=== PATIENT | female | born 1990 | race Caucasian/White ===

== ENCOUNTER 2019-08-23 14:45 | Emergency (ER) | payer SELFPAY ==
[2019-08-23 14:57] VITALS: BP 130/64
[2019-08-23] MEDS ORDERED: PENICILLIN V POTASSIUM 500 MG TABLET PO ONE (15:14)
[2019-08-23] MEDS ORDERED: OXYCODONE-ACETAMINOPHEN 5-325 MG TABLET PO ONE (15:14)
--- NOTE | 2019-08-23 15:16 | ER Document Report ---
HPI - HPI Time Seen by Provider: 08/23/19 15:14 Notes: Patient is a 28-year-old female presenting to the emergency department with complaints of body aches, cough, congestion, chills and a rash under her bilateral breasts. 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 Past Medical History - General Information source: Patient - Social History Smoking Status: Current Every Day Smoker Frequency of alcohol use: Heavy Drug Abuse: None Family History: Reviewed & Not Pertinent - Medical History Medical History: Negative Surgical Hx: Negative - Immunizations Immunizations up to date: Yes Vertical Provider Document - CONSTITUTIONAL Notes: PHYSICAL EXAMINATION: GENERAL: Well-appearing, well-nourished and in no acute distress. HEAD: Atraumatic, normocephalic. EYES: Pupils equal round extraocular movements intact, conjunctiva are normal. ENT: Nares patent with clear rhinorrhea, oropharynx mildly erythematous but without tonsillar swelling or exudates. Bilateral TMs unremarkable. NECK: Normal range of motion, no cervical lymphadenopathy. LUNGS: No respiratory distress. Musculoskeletal: Normal range of motion NEUROLOGICAL: Normal speech, normal gait. PSYCH: Normal mood, normal affect. SKIN: Dry skin noted under bilateral breasts with mild erythema noted. No induration or fluctuance. Course - Re-evaluation Re-evalutation: Patient was lying on the ground at the time of me and the nurses initial evaluation. She reports she has been drinking alcohol all night and has been taking tablets of Benadryl. Patient does have symptoms and physical exam findings consistent with an upper respiratory illness. Patient will be started on prednisone, Zithromax and be encouraged to push fluids. Patient encouraged to stop drinking so much indefinitely now makes Benadryl with alcohol. Patient verbalizes understanding and agreement with this plan. - Vital Signs Vital signs: Temp Pulse Resp BP Pulse Ox 98.5 F 103 H 18 130/64 H 95 08/23/19 14:55 08/23/19 14:55 08/23/19 14:55 08/23/19 14:55 08/23/19 14:55 Discharge - Discharge Clinical Impression: Body aches, Rash Upper respiratory infection Qualifiers: URI type: unspecified URI Qualified Code(s): J06.9 - Acute upper respiratory infection, unspecified Condition: Stable Disposition: HOME, SELF-CARE Additional Instructions: Upper Respiratory Illness You have a viral infection of the respiratory passages -- a "cold." This common infection causes nasal congestion, drainage, and often sore throat and cough. It is caused by a virus and is highly contagious. The disease usually lasts a week or more, though the worst symptoms are usually over in 3 or 4 days. There is no "cure" for the viral infection -- it must run its course. If there is a complication, such as bacterial infection in the nose, sinuses, middle ear, or bronchial tubes, antibiotics may be required, but antibiotics won't affect the virus. If you smoke, you should STOP!! Drink plenty of fluids. A humidifier may help. An expectorant medication or decongestant may make you more comfortable. Use acetaminophen or ibuprofen for fever or aches. See the doctor if fever persists over two or three days, if there is any significant worsening of your symptoms, or if you simply fail to improve as expected. Viral Syndrome The physician has diagnosed a viral infection. Viruses not only cause "colds," but can cause many different symptoms including generalized aching, fever, headache, cough, diarrhea, nausea, vomiting, and fatigue. The treatment, for the most part, is simply relief of symptoms. This means that antibiotics are usually not given. Rest, fluids, pain medications and, occasionally, medication for the specific symptoms that are most bothersome will be prescribed. Use good handwashing to avoid passing the virus to others. Shared toys should be cleaned with disinfectant. Clean the toilets, sinks, and counter surfaces in bathrooms. Launder clothing in hot water. Contact the physician if you develop any new or unusual symptoms such as severe headache, stiff neck, high fever, chest pain, productive cough, or shortness of breath. You should be rechecked if you don't see marked improvement within seven to 10 days. Please take all medications as prescribed. It is very important that you follow-up with the [facility] regarding follow-up for your hepatitis that has gone untreated for quite some time now. Prescriptions: Prednisone [Deltasone 20 mg Tablet] 3 tab PO DAILY 5 Days #15 tablet Famotidine [Pepcid 40 mg Tablet] 40 mg PO BID #14 tablet Azithromycin [Zithromax] 250 mg PO ASDIR PRN #6 tablet PRN Reason: Referrals: [facility] [Outside] - Follow up as needed
== END 2019-08-23 16:30 | disposition home or self-care (01) ==
LOC: ER 14:45
DX: J06.9 Acute upper respiratory infection, unspecified (principal); R21 Rash and other nonspecific skin eruption; R52 Pain, unspecified; R05 Cough; R68.83 Chills (without fever); J34.89 Other specified disorders of nose and nasal sinuses; F17.200 Nicotine dependence, unspecified, uncomplicated
CPT/HCPCS: 82962; 99283

== ENCOUNTER 2020-10-04 18:46 | Emergency (ER) | payer SELFPAY ==
[2020-10-04] MEDS ORDERED: IBUPROFEN 600 MG TABLET PO ONE (19:54)
--- NOTE | 2020-10-04 19:54 | ER Document Report ---
ED Medical Screen (RME) - General Chief Complaint: Eye Pain Stated Complaint: EYE PAIN Time Seen by Provider: 10/04/20 19:50 Mode of Arrival: Ambulatory Information source: Patient Notes: 29-year-old female presented to ED for complaint of pain to the left eye starting yesterday afternoon. States it got worse as the day went on it and is been worse all day today. She also has an abscess in her left axilla. She states she is afraid that is MRSA she states she has had this about 3 times now. She states she does smoke cigarettes and marijuana but does not use alcohol . She states she has abscesses previously. He does have purulent drainage coming out of the inner corner of her eye. States her pain is a 5/5 is not taking any pain medications. We will write her some Motrin at this time. I have greeted and performed a rapid initial assessment of this patient. A comprehensive ED assessment and evaluation of the patient, analysis of test results and completion of medical decision making process will be conducted by an additional ED providers. - Related Data Allergies/Adverse Reactions: No Known Allergies Allergy (Unverified 08/23/19 16:43) Past Medical History - Immunizations Immunizations up to date: Yes Physical Exam - Vital signs Vitals: Temp Pulse Resp BP Pulse Ox 98.2 F 106 H 18 122/57 L 100 10/04/20 18:53 10/04/20 18:53 10/04/20 18:53 10/04/20 18:53 10/04/20 18:53 Course - Vital Signs Vital signs: Temp Pulse Resp BP Pulse Ox 98.2 F 106 H 18 122/57 L 100 10/04/20 18:53 10/04/20 18:53 10/04/20 18:53 10/04/20 18:53 10/04/20 18:53
[2020-10-05] MEDS ORDERED: IBUPROFEN 600 MG TABLET ONE (02:00)
[2020-10-05] MEDS ORDERED: LIDOCAINE 1% INJ-PF (10 MG/ML) 30 ML SDV INJ ONE (02:36)
[2020-10-05] MEDS ORDERED: POLYMYXIN B SULFATE/TMP OPH SOLN (10 ML/ER DISP) OS PRN (02:36)
--- NOTE | 2020-10-05 02:38 | ER Document Report ---
ED General - General Chief Complaint: Eye Pain Stated Complaint: EYE PAIN Time Seen by Provider: 10/04/20 19:50 Mode of Arrival: Ambulatory Notes: Patient is a 29-year-old female who comes to the emergency department with 2 complaints. First complaint is a recurrent abscess in the left axillary area. She states she keeps draining it but it keeps coming back. When she does drain it it drains purulent material. Patient also states that over the past couple of days she has developed a redness irritation, and discomfort in her left eye. She denies any obvious sick exposures. She denies swelling of the eyelids, fever/chills, nausea/vomiting. She does not wear eye correction. She denies . She takes no daily medications. She denies any other complaints. - Related Data Allergies/Adverse Reactions: No Known Allergies Allergy (Unverified 08/23/19 16:43) Past Medical History - General Information source: Patient - Social History Smoking Status: Current Every Day Smoker Frequency of alcohol use: None Drug Abuse: Marijuana Lives with: Alone Family History: Reviewed & Not Pertinent Surgical Hx: Negative - Immunizations Immunizations up to date: Yes Hx Diphtheria, Pertussis, Tetanus Vaccination: Yes Review of Systems - Review of Systems Constitutional: No symptoms reported EENT: See HPI Cardiovascular: No symptoms reported Respiratory: No symptoms reported Gastrointestinal: No symptoms reported Genitourinary: No symptoms reported Female Genitourinary: No symptoms reported Musculoskeletal: No symptoms reported Skin: See HPI Hematologic/Lymphatic: No symptoms reported Neurological/Psychological: No symptoms reported Physical Exam - Vital signs Vitals: Temp Pulse Resp BP Pulse Ox 98.2 F 106 H 18 122/57 L 100 10/04/20 18:53 10/04/20 18:53 10/04/20 18:53 10/04/20 18:53 10/04/20 18:53 - Notes Notes: GENERAL: Alert, interacts well. No acute distress. HEAD: Normocephalic, atraumatic. EYES: Pupils equal, round, and reactive to light. Extraocular movements intact. Left conjunctiva noted to be injected, eyelids unremarkable, no photophobia. Fluorescein stain shows no uptake, no foreign body, negative Marlon sign, no concerning findings. Right eye unremarkable. ENT: Oral mucosa moist, tongue midline. Oropharynx unremarkable. Airway patent. Nares patent, sinuses non-tender NECK: Full range of motion. Supple. Trachea midline. No lymphadenopathy. LUNGS: Clear to auscultation bilaterally, no wheezes, rales, or rhonchi. No respiratory distress. Non-tender chest wall. HEART: Regular rate and rhythm. No murmur ABDOMEN: Soft, non-tender. Non-distended. EXTREMITIES: Moves all 4 extremities spontaneously. No edema, normal radial and dorsalis pedis pulses bilaterally. No cyanosis. BACK: no cervical, thoracic, lumbar midline tenderness. No saddle anesthesia, normal distal neurovascular exam. Moves all extremities in full range of motion. NEUROLOGICAL: Alert and oriented x3. Normal speech. Cranial nerves II through XII grossly intact. Strength 5/5 in all extremities. PSYCH: Normal affect, normal mood. SKIN: Left axilla with a circular area with erythema and tenderness, no surrounding cellulitis, no nearby lymphadenopathy, otherwise unremarkable. - HEENT Visual acuity- Right eye: 20/200 Visual acuity- Left eye: 20/70 Visual acuity- Both eyes: 20/70 Course - Re-evaluation Re-evalutation: Exam is consistent with conjunctivitis, slit-lamp is unremarkable, placing patient on Polytrim drops. Patient with a sebaceous cyst abscess in the left axillary area, this was incised and drained, this was dressed, placed on antibiotics. Patient also asked me to look at an area in the groin where she has a tender rash, this was evaluated with Maris RN at bedside, this is most consistent with folliculitis and patient states it started the closely after she had shaved the area. Patient will be placed on doxycycline. I discussed care, follow-up, expectations, return precautions. Patient states appreciation and agreement. Stable and well-appearing at time of discharge. - Vital Signs Vital signs: Temp Pulse Resp BP Pulse Ox 98.2 F 67 18 116/82 100 10/04/20 18:53 10/05/20 04:45 10/05/20 04:45 10/05/20 04:45 10/05/20 04:45 Procedures - Incision and Drainage Left axilla Type: Single Anesthetic type: 1% Lidocaine mL's of anesthetic: 4 Blade size: 11 I&D procedure: Shurclens applied, Sterile dressing applied Incision Method: Incision made by scalpel Amount/type of drainage: About 2 cc of purulent drainage with thick cheesy appearance Discharge - Discharge Clinical Impression: Abscess, Folliculitis Conjunctivitis Qualifiers: Conjunctivitis type: unspecified Laterality: left Qualified Code(s): H10.9 - Unspecified conjunctivitis Condition: Stable Disposition: HOME, SELF-CARE Additional Instructions: Your exam indicates conjunctivitis, pinkeye. Use the topical antibiotic drops as prescribed (1 drop, 4 times a day, for 7 days). Sometimes this is viral and can last a little longer but this should simply resolve with time. Your exam also shows folliculitis and a sebaceous cyst abscess. Take the antibiotic as prescribed. Keep the drained cyst clean, clean with soap and wate r, apply absorbent dressing. This should simply heal with time. The cyst has a high likelihood of reinfecting in the future, I recommend dermatology follow-up for care so this will not come back. Return if you worsen including fever, swelling or spreading redness, or any other concerning or worsening symptoms. Prescriptions: Doxycycline Hyclate [Vibramycin 100 mg Tablet] 100 mg PO BID 7 Days #14 tablet Forms: Return to Work
[2020-10-05] MEDS ORDERED: DOXYCYCLINE HYCLATE 100 MG TABLET PO ONE (04:20)
[2020-10-05] MEDS ORDERED: OXYCODONE-ACETAMINOPHEN 5-325 MG TABLET PO ONE (04:36)
[2020-10-05 04:49] VITALS: BP 116/82
== END 2020-10-05 04:50 | disposition home or self-care (01) ==
LOC: ER 18:46
DX: L02.412 Cutaneous abscess of left axilla (principal); L72.3 Sebaceous cyst; L73.9 Follicular disorder, unspecified; H10.9 Unspecified conjunctivitis; F17.200 Nicotine dependence, unspecified, uncomplicated; F12.10 Cannabis abuse, uncomplicated
CPT/HCPCS: 99283; 10060; J3490 ×2

== ENCOUNTER 2020-10-18 17:21 | Emergency (ER) | payer SELFPAY ==
--- NOTE | 2020-10-18 17:58 | ER Document Report ---
ED Medical Screen (RME) - General Chief Complaint: Skin Problem Stated Complaint: EYE PAIN Time Seen by Provider: 10/18/20 17:47 Mode of Arrival: Ambulatory Information source: Patient Notes: Patient presents complaining of yellow mucus stool whenever she attempts to have a bowel movement. Patient states she cannot have a bowel movement and only leaves this mucousy yellowish discharge for the past 3 weeks. Patient states that she notices warms to her face and noticed a warm crawling across the colored portion of her left eye. Patient reports decreased vision to the left eye and decreased hearing to the left ear. Patient reports subjective fevers off and on. Patient with multiple excoriated skin lesions, patient does admit to history of IV drug abuse although states her last use was over a week ago. Patient states she was recently here and diagnosed with pinkeye and an abscess although did not get the doxycycline prescription filled. Patient states her significant other was admitted recently and had to get IV antibiotics for an infection. I have greeted and performed a rapid initial assessment of this patient. A comprehensive ED assessment and evaluation of the patient, analysis of test results and completion of the medical decision making process will be conducted by additional ED providers. - Related Data Allergies/Adverse Reactions: No Known Allergies Allergy (Unverified 08/23/19 16:43) Past Medical History - Immunizations Immunizations up to date: Yes Hx Diphtheria, Pertussis, Tetanus Vaccination: Yes Physical Exam - Vital signs Vitals: Temp Pulse Resp BP Pulse Ox 98.4 F 80 16 132/93 H 100 10/18/20 17:36 10/18/20 17:36 10/18/20 17:36 10/18/20 17:36 10/18/20 17:36 - General General appearance: Alert Notes: Multiple excoriated skin lesions to face trunk and extremities Course - Vital Signs Vital signs: Temp Pulse Resp BP Pulse Ox 98.4 F 80 16 132/93 H 100 10/18/20 17:36 10/18/20 17:36 10/18/20 17:36 10/18/20 17:36 10/18/20 17:36
[2020-10-18 19:04] LABS: ABSOLUTE BASOPHILS # (AUTO) 0.1 10^3/uL (0.0-0.2); ABSOLUTE EOSINOPHILS # (AUTO) 0.5 10^3/uL (0.0-0.6); ABSOLUTE LYMPHOCYTES (AUTO) 4.7 10^3/uL (0.5-4.7); ABSOLUTE MONOCYTES (AUTO) 0.7 10^3/uL (0.1-1.4); ABSOLUTE NEUT (AUTO) 4.6 10^3/uL (1.7-8.2); BASOPHILS % (AUTO) 0.8 % (0-2); EOSINOPHILS % (AUTO) 4.4 % (0-6); HEMATOCRIT 38.5 % (36.0-47.0); HEMOGLOBIN 13.1 g/dL (12.0-15.5); LYMPHOCYTES % (AUTO) 44.9 % (13-45); MEAN CORPUSCULAR VOLUME 88 fl (80-97); MONOCYTES % (AUTO) 6.6 % (3-13); PLATELET COUNT 297 10^3/uL (150-450); RED BLOOD COUNT 4.36 10^6/uL (3.72-5.28); RED CELL DISTRIBUTION WIDTH 12.4 % (11.5-14.0); SEGMENTED NEUTROPHILS % (AUTO) 43.3 % (42-78); TOTAL CELLS COUNTED % (AUTO) 100 %; WHITE BLOOD COUNT 10.5 10^3/uL (4.0-10.5)
[2020-10-18 19:17] LABS: APPEARANCE,URINE SLIGHTLY-CLOUDY; BILIRUBIN,URINE NEGATIVE (NEGATIVE); COLOR,URINE YELLOW; GLUCOSE, URINE NEGATIVE (NEGATIVE); KETONES,URINE NEGATIVE (NEGATIVE); LEUKOCYTE ESTERASE,URINE SMALL (NEGATIVE); NITRITE,URINE POSITIVE (NEGATIVE); PROTEIN,URINE NEGATIVE (NEGATIVE); URINE SPECIFIC GRAVITY 1.019
[2020-10-18 19:27] LABS: ALBUMIN 4.2 g/dL (3.5-5.0); ALKALINE PHOSPHATASE 85 U/L (38-126); ANION GAP 8 (5-19); ASPARTATE AMINO TRANSFERASE 18 U/L (14-36); BILIRUBIN,DIRECT 0.1 mg/dL (0.0-0.4); BILIRUBIN,TOTAL 0.8 mg/dL (0.2-1.3); BLOOD UREA NITROGEN 11 mg/dL (7-20); CALCIUM 9.7 mg/dL (8.4-10.2); CARBON DIOXIDE 29 mmol/L (22-30); CHLORIDE 102 mmol/L (98-107); GLUCOSE 89 mg/dL (75-110); POTASSIUM 3.7 mmol/L (3.6-5.0); TOTAL PROTEIN 7.5 g/dL (6.3-8.2)
[2020-10-18 19:34] LABS: ALCOHOL < 10 mg/dL (NONE DETECTED)
[2020-10-18 19:39] LABS: URINE BARBITURATES SCREEN NEGATIVE; URINE BENZODIAZEPINES SCREEN NEGATIVE; URINE COCAINE SCREEN NEGATIVE; URINE MARIJUANA (THC) SCREEN NEGATIVE; URINE METHADONE SCREEN NEGATIVE; URINE PHENCYCLIDINE SCREEN NEGATIVE
[2020-10-18 20:10] LABS: URINE AMPHETAMINES SCREEN UNCONFIRMED POSITIVE
[2020-10-19] MEDS ORDERED: CLINDAMYCIN 600 MG/D5W RTU 600 MG/50 ML RTUPB IV ONE (01:22)
[2020-10-19] MEDS ORDERED: GENTAMICIN SULFATE 0.3% OPH SOLN 5 ML OS ONE (01:23)
[2020-10-19 01:53] VITALS: BP 133/91
--- NOTE | 2020-10-19 02:10 | ER Document Report ---
Entered by RENETTA REINOSO SCRIBE 10/19/20 0117 Acting as scribe for:STERLING BOONE DO ED General - General Chief Complaint: Skin Problem Stated Complaint: EYE PAIN Time Seen by Provider: 10/18/20 17:47 Mode of Arrival: Ambulatory Information source: Patient Notes: This 29 year old female patient presents to the emergency department today with complaints of lesions to her left armpit and redness to her left eye. Patient was seen on 10/05 and diagnosed with pinkeye and abscess to her left axilla. Patient was discharged with a prescription and states she had not taken it because her boyfriend won't let her have it. Patient states she uses methamphetamine and denies other drug use. Patient reports constipation. Patient states there are bumps all over her body caused by worms and states she has a video of a worm moving over her left eye. - Related Data Allergies/Adverse Reactions: No Known Allergies Allergy (Unverified 08/23/19 16:43) Past Medical History - General Information source: Patient - Social History Smoking Status: Current Every Day Smoker Cigarette use (# per day): Yes Drug Abuse: Methamphetamine Family History: Reviewed & Not Pertinent Past Surgical History: Reports: Hx Hysterectomy - partial - Immunizations Immunizations up to date: Yes Hx Diphtheria, Pertussis, Tetanus Vaccination: Yes Review of Systems - Review of Systems Constitutional: No symptoms reported EENT: See HPI, Other - L eye red Cardiovascular: No symptoms reported Respiratory: No symptoms reported Gastrointestinal: See HPI, Constipation Genitourinary: No symptoms reported Female Genitourinary: No symptoms reported Musculoskeletal: No symptoms reported Skin: See HPI, Lesions - L armpit, Other - bumps everywhere Hematologic/Lymphatic: No symptoms reported Neurological/Psychological: No symptoms reported -: Yes All other systems reviewed and negative Physical Exam - Vital signs Vitals: Temp Pulse Resp BP Pulse Ox 98.4 F 80 16 132/93 H 100 10/18/20 17:36 10/18/20 17:36 10/18/20 17:36 10/18/20 17:36 10/18/20 17:36 - General General appearance: Alert, Anxious - HEENT Head: Normocephalic, Atraumatic Eyes: Other - Mild soft tissue swelling to the left eyelid. Conjunctiva: Injected - L eye Extraocular movements intact: Yes Pupils: PERRL Visual acuity- Right eye: 20/200 Visual acuity- Left eye: 20/70 Visual acuity- Both eyes: 20/50 Corrective lenses worn: No Neck: Normal - Respiratory Respiratory status: No respiratory distress Chest status: Nontender Breath sounds: Normal Chest palpation: Normal - Cardiovascular Rhythm: Regular Heart sounds: Normal auscultation Murmur: No - Abdominal Inspection: Normal, Other - soft Distension: No distension Bowel sounds: Normal Tenderness: Nontender - Extremities General upper extremity: Normal inspection, Normal ROM General lower extremity: Normal inspection, Normal ROM. No: Edema - Neurological Neuro grossly intact: Yes Cognition: Normal Orientation: AAOx4 [place]hea Coma Scale Eye Opening: Spontaneous [place] Coma Scale Verbal: Oriented [place] Coma Scale Motor: Obeys Commands [place] Coma Scale Total: 15 Speech: Normal Motor strength normal: LUE, RUE, LLE, RLE Sensory: Normal - Psychological Notes: Anxious. Admits history of drug abuse. - Skin Skin Temperature: Warm Skin Moisture: Dry Notes: Pustules to the face, trunk, and extremities. No active drainage. Course - Re-evaluation Re-evalutation: 10/19/20 02:10 MDM 29 year old female - regular methamphetamine user - is obsessed with worms she believe may be coming out of the pustules that she has on her body. No fever or chills. She appears well and is certainly nontoxic. No si or hi and no interest in stopping meth use. Has left eye irritation which she is rubbing continuously. Pustules are noted in her axilla, on her arms and vulva that are consistent with MRSA exposure/ colonization. - Vital Signs Vital signs: Temp Pulse Resp BP Pulse Ox 98.7 F 69 16 133/91 H 98 10/19/20 01:52 10/19/20 01:52 10/19/20 01:52 10/19/20 01:52 10/19/20 01:52 - Laboratory Result Diagrams: 10/18/20 18:22 10/18/20 18:22 Laboratory results interpreted by me: 10/18/20 18:22 Urine Nitrite POSITIVE H Urine Urobilinogen 2.0 H Ur Leukocyte Esterase SMALL H Discharge - Discharge Clinical Impression: Methamphetamine abuse, MRSA carrier Condition: Stable Disposition: HOME, SELF-CARE Instructions: Family Physicians / Practices, MRSA Cellulitis ([facility]) Additional Instructions: Take the antibiotics as directed until gone. Use the eye drops as directed. Return here for chest pain, shortness of breath, other problems or other concerns. Stop using methamphetamine, it will ruin your life. Take the medicine as directed for constipation. Prescriptions: Clindamycin HCl [Cleocin HCl] 150 mg PO QID #40 capsule Clindamycin HCl [Cleocin HCl] 150 mg PO QID #40 capsule Gentamicin Sulfate [Garamycin 0.3% Oph Soln 5 ml] 1 drop OS QID #1 bottle Gentamicin Sulfate [Garamycin 0.3% Oph Soln 5 ml] 1 drop OS QID #1 bottle Polyethylene Glycol 3350 [Miralax Powder 17 gm/Packet] 1 packet PO DAILY #7 pkg Polyethylene Glycol 3350 [Miralax Powder 17 gm/Packet] 1 packet PO DAILY #7 pkg Forms: Smoking Cessation Education I personally performed the services described in the documentation, reviewed and edited the documentation which was dictated to the scribe in my presence, and it accurately records my words and actions.
[2020-10-19] MEDS ORDERED: GENTAMICIN SULFATE 0.3% OPH SOLN 5 ML ONE (02:39)
== END 2020-10-19 03:18 | disposition home or self-care (01) ==
LOC: ER 17:21
DX: F15.10 Other stimulant abuse, uncomplicated (principal); H10.029 Other mucopurulent conjunctivitis, unspecified eye; L02.412 Cutaneous abscess of left axilla; T50.906A Underdosing of unspecified drugs, medicaments and biological substances, initial encounter; Z91.138 Patient's unintentional underdosing of medication regimen for other reason; K59.00 Constipation, unspecified; F17.210 Nicotine dependence, cigarettes, uncomplicated; Z22.322 Carrier or suspected carrier of Methicillin resistant Staphylococcus aureus
CPT/HCPCS: 99284; 96365; 36415; 80307 ×2; 84703; 85025; 80053; 81001; J3490